=== PATIENT | female | born 1945 | race Caucasian/White ===

== ENCOUNTER → 2016-07-27 | Outpatient (CLI) | payer OTHER ==
[~2016-07-27] MED LIST: ACET-24 PO; ALPR0.5T PO; ASPEC325 PO; DLB500 PO; FRRG PO; LEVO112T4 PO; LEVO125T72 PO; LIDO5DIS10 TD; LISI-461 PO; MORP-157 PO; PANT1TAB48 PO; PARO1TAB27 PO; PARO1TAB29 PO; PRT/20 PO; ROSU20TA22 PO; RXC5 PO; WARF1TAB PO; [UNRECOGNIZED DRUG - REMARK] PO
[2016-07-27 13:10] LABS: HEMATOCRIT 43.7 % (37-47); MEAN CELL VOLUME 88.5 fL (80-100); MEAN CORPUSCULAR HEMOGLOBIN 29.4 pg (25-34); MEAN CORPUSCULAR HGB CONC 33.2 g/dl (32-36); MEAN PLATELET VOLUME 10.5 fL (7.4-10.4); PLATELET COUNT 214 K/uL (130-400); RED BLOOD COUNT 4.94 M/uL (4.2-5.4)
[2016-07-27 14:39] LABS: SYNOVIAL FLUID APPEARANCE CLOUDY; SYNOVIAL FLUID COLOR YELLOW; SYNOVIAL FLUID MONONUC RELAT 38.5 %; SYNOVIAL FLUID POLYNUC RELAT 61.5 %
== END | disposition home or self-care (01) ==
LOC: C.LABBC 09:41
PROVIDERS: ATTEND Orthopaedic Surgery Sports Medicine
DX: M25.569 Pain in unspecified knee (principal); Z96.659 Presence of unspecified artificial knee joint

== ENCOUNTER → 2016-09-22 | Outpatient (CLI) | payer OTHER | END | disposition home or self-care (01) | LOC: C.LAB 13:08 | PROVIDERS: ATTEND Family Medicine | DX: E03.9 Hypothyroidism, unspecified (principal) ==

== ENCOUNTER → 2016-10-16 | Outpatient (CLI) | payer OTHER ==
[~2016-10-16] MED LIST changes: -LEVO125T72 PO; -LIDO5DIS10 TD; -PANT1TAB48 PO; -PARO1TAB27 PO; -WARF1TAB PO; -[UNRECOGNIZED DRUG - REMARK] PO
[2016-10-16 10:29] LABS: HEMATOCRIT 41.9 % (37-47); MEAN CORPUSCULAR HEMOGLOBIN 29.5 pg (25-34); MEAN CORPUSCULAR HGB CONC 33.2 g/dl (32-36); MEAN PLATELET VOLUME 9.7 fL (7.4-10.4); PLATELET COUNT 257 K/uL (130-400); RED BLOOD COUNT 4.71 M/uL (4.2-5.4); WHITE BLOOD COUNT 5.83 K/uL (4.8-10.8)
== END | disposition home or self-care (01) ==
LOC: C.LABBC 08:28
PROVIDERS: ATTEND Orthopaedic Surgery Sports Medicine
DX: M79.604 Pain in right leg (principal)

== ENCOUNTER → 2016-10-22 | Outpatient (CLI) | payer OTHER ==
[2016-10-22 13:38] LABS: HEMATOCRIT 44.1 % (37-47); MEAN CELL VOLUME 89.5 fL (80-100); MEAN CORPUSCULAR HEMOGLOBIN 29.4 pg (25-34); MEAN CORPUSCULAR HGB CONC 32.9 g/dl (32-36); MEAN PLATELET VOLUME 10.1 fL (7.4-10.4); PLATELET COUNT 254 K/uL (130-400); RED BLOOD COUNT 4.93 M/uL (4.2-5.4); WHITE BLOOD COUNT 6.77 K/uL (4.8-10.8)
[2016-10-22 14:01] LABS: SYNOVIAL FLUID APPEARANCE HAZY; SYNOVIAL FLUID COLOR AMBER; SYNOVIAL FLUID MONONUC RELAT 31.5 %; SYNOVIAL FLUID POLYNUC RELAT 68.5 %
== END | disposition home or self-care (01) ==
LOC: C.LABBC 12:05
PROVIDERS: ATTEND Orthopaedic Surgery Sports Medicine
DX: M25.569 Pain in unspecified knee (principal); Z96.659 Presence of unspecified artificial knee joint

== ENCOUNTER → 2016-11-18 | Outpatient (CLI) | payer OTHER ==
[2016-11-18 13:41] LABS: BASO % 0.3 %; BASO ABS # 0.02 K/uL (0-0.2); COMPLETE YES; HEMATOCRIT 40.7 % (37-47); IG% 0.5 %; LYMPH % 37.7 %; LYMPH ABS # 2.17 K/uL (1.2-3.4); MEAN CELL VOLUME 88.7 fL (80-100); MEAN CORPUSCULAR HEMOGLOBIN 29.4 pg (25-34); MEAN CORPUSCULAR HGB CONC 33.2 g/dl (32-36); MEAN PLATELET VOLUME 9.4 fL (7.4-10.4); MONO % 8.7 %; NEUT % 48.8 %; PLATELET COUNT 218 K/uL (130-400); RED BLOOD COUNT 4.59 M/uL (4.2-5.4); WHITE BLOOD COUNT 5.76 K/uL (4.8-10.8)
[2016-11-18 13:51] LABS: PROTHROMBIN TIME (PATIENT) 10.8 SECONDS (9.0-12.0)
[2016-11-18 14:25] LABS: BLOOD UREA NITROGEN 13 mg/dl (7-18); BUN/CREATININE RATIO 10.1 (10-20); C-REACTIVE PROTEIN < 0.29 mg/dl (0-0.29); CALCIUM 9.3 mg/dl (8.5-10.1); CARBON DIOXIDE 27 mmol/L (21-32); CHLORIDE 107 mmol/L (98-107); GLUCOSE 82 mg/dl (70-99); POTASSIUM 3.6 mmol/L (3.5-5.1); SODIUM 141 mmol/L (136-145)
--- NOTE | 2016-12-09 10:36 | History and Physical ---
History & Physical Documentation Date Dec 09, 2016. Chief Complaint Right knee pain HPI (Knee Pain) Pain Location: Anterior knee, Lateral knee, Posterior knee, Medial knee Duration: Months Adversely Affecting: ADL's, Recreation Symptoms Include: + Pain, + Giving way History of Injury/Trauma: Yes (Started with a fall) Non-Surgical Therapies: Behavior modification, Splinting / bracing Mechanical Assistive Devices: Walker Joint Injection: None Prior Orthopedic Procedures: TKA Additional Notes: Extensive work-up reveals aseptic loose TKR with periprosthetic tibia fracture Past Medical/Surgical History HTN Elevated Cholesterol Anxiety Hypothyroidism Low Back Pain GERD Chronic Renal Insufficiency Eye Surgery Right Partial Knee Replacement Right TKR Right Elbow surgery Kidney removal Additional History Hepatic Disease: No Endocrine Disorder: Yes Kidney Disease: Yes Hypertension: Yes Heart Disease: No Bleeding Tendencies: No Infectious Diseases: No Family History No Heart disease, No Pulmonary disease, No Anesthesia difficulties, No Bleeding tendencies Social History Smoking Status: Never Smoker Smokeless Tobacco Use: No Drug Use: none Marital Status: Housing status: lives with family Allergies Coded Allergies: No Known Allergies (Verified , 09/22/16) Home Medications Scheduled Diflunisal (Diflunisal), 500 MG PO BID Levothyroxine Sodium (Levothyroxine Sodium), 1 TAB PO QAM Lisinopril (Zestril), 10 MG PO QAM Pantoprazole (Protonix), 20 MG PO DAILY Paroxetine (Paxil), 40 MG PO QAM Rosuvastatin Calcium (Rosuvastatin Calcium), 1 TAB PO QAM Scheduled PRN Alprazolam (Xanax), 0.5 MG PO BID PRN for Anxiety Review of Systems Constitutional: No fever, No chills, No sweats, No weight loss, No weakness, No fatigue, No problem reported Eyes: No worsening of vision, No eye pain, No redness, No discharge, No diplopia, No problem reported ENT: No hearing loss, No unusual epistaxis, No nasal symptoms, No sore throat, No tinnitus, No dental problems, No trouble swallowing, No problem reported Respiratory: No cough, No sputum, No wheezing, No shortness of breath, No dyspnea on exertion, No dyspnea at rest, No hemoptysis, No problem reported Cardiovascular: No chest pain, No orthopnea, No PND, No edema, No claudication , No palpitations, No problem reported Abdomen: No pain, No nausea, No vomiting, No diarrhea, No constipation, No GI bleeding, No problem reported Musculoskeletal: + joint pain, + muscle pain Genitourinary - Female: No dysuria, No urinary frequency, No urinary urgency, No urinary incontinence, No urinary retention, No hematuria, No dysmenorrhea, No menorrhagia, No metrorrhagia, No rash, No vaginal bleeding, No vaginal discharge, No vaginal itching, No vulvodynia, No , No problem reported Neurologic: No memory loss, No paralysis, No weakness, No numbness/tingling, No vertigo, No balance problems, No problem reported Hematologic / Lymphatic: No abnormal bleeding/bruising, No clotting problems, No swollen lymph nodes, No night sweats, No problem reported Integumentary: No rash, No itch, No new/changing skin lesions, No color change , No bleeding, No problem reported Physical Exam Skin: warm/dry, no rash Eyes: normal inspection ENT: normal ENT inspection Head: normocephalic Neck: supple, no adenopathy Respiratory/Chest: lungs clear, normal breath sounds Cardiovascular: regular rate, rhythm Abdomen / GI: normal bowel sounds Back: normal inspection Neurovascular: Warm, Normal perfusion Neurologic/Psych: no motor/sensory deficits Physical Exam (Knee) Inspection: + Effusion Gait: + Antalgic Range of Motion: pertinent finding (ROM 0 -110) Alignment: + Genu varum Tenderness: Medial joint line, Lateral joint line, Suprapatellar, Infrapatellar (Tender tibia shaft) Radiology Plain Films: pertinent finding (TKR in place with Osteolysis and Funmilayo- prosthetic tibia fractrure - healing) Laboratory ESR = 5 CRP = < 0.29 Aspirate - Negative for infection on Multiple Aspirations Diagnosis & Plan Diagnosis & Plan (1) Periprosthetic Tibia fracture Plan: TKA revision (2) Aseptic Loose TKR Plan: TKA revision Refer to previously dictated HX + PE. Plan to revise to Revision TKR with long stem in tibia. In signs of infection, will place Antibiotic mold.
== END | disposition home or self-care (01) ==
LOC: C.LABBC 12:10
PROVIDERS: ATTEND Orthopaedic Surgery Sports Medicine
DX: Z01.812 Encounter for preprocedural laboratory examination (principal)

== ENCOUNTER 2016-12-11 10:06 | Inpatient (IN) | payer OTHER ==
[2016-09-22 13:13] VITALS: BMI 29.0
[2016-09-22 13:29] VITALS: BMI 29.0
--- NOTE | 2016-09-22 13:56 | PAT Medication Instructions ---
Service Date September 22, 2016. Current Home Medication List Alprazolam (Xanax), 0.5 MG PO BID PRN for Anxiety Diflunisal (Diflunisal), 500 MG PO BID Levothyroxine Sodium (Levothyroxine Sodium), 1 TAB PO QAM Lisinopril (Zestril), 10 MG PO QAM Paroxetine (Paxil), 40 MG PO QAM [Mylon], 40 MG PO QAM Medication Instructions For Your Scheduled Surgery Mylon 40 MG PO QAM (please call Gauri in PAT with name and dose) - Hold the following medications 10 days prior to surgery per surgeon instructins: Diflunisal (Diflunisal), 500 MG PO BID - Hold the following medications the morning of surgery: Lisinopril (Zestril), 10 MG PO QAM - Take the following medications the morning of surgery with a sip of water: Paroxetine (Paxil), 40 MG PO QAM Levothyroxine Sodium (Levothyroxine Sodium), 1 TAB PO QAM Alprazolam (Xanax), 0.5 MG PO BID PRN for Anxiety - Take the following medications as scheduled the night before surgery: Alprazolam (Xanax), 0.5 MG PO BID PRN for Anxiety If you have any questions please call us at [phone] or [phone] ( Gauri) or [phone]
[2016-09-22 14:16] LABS: BASO % 0.3 %; BASO ABS # 0.02 K/uL (0-0.2); COMPLETE YES; EOS % 3.5 %; HEMATOCRIT 42.1 % (37-47); IG% 0.2 %; LYMPH % 30.5 %; LYMPH ABS # 2.02 K/uL (1.2-3.4); MEAN CELL VOLUME 88.1 fL (80-100); MEAN CORPUSCULAR HGB CONC 31.8 g/dl (32-36); MEAN PLATELET VOLUME 9.5 fL (7.4-10.4); MONO % 10.3 %; NEUT % 55.2 %; PLATELET COUNT 230 K/uL (130-400); RED BLOOD COUNT 4.78 M/uL (4.2-5.4); WHITE BLOOD COUNT 6.63 K/uL (4.8-10.8)
[2016-09-22 14:32] LABS: PROTHROMBIN TIME (PATIENT) 10.2 SECONDS (9.0-12.0)
[2016-09-22 15:04] LABS: BUN/CREATININE RATIO 15.5 (10-20); C-REACTIVE PROTEIN 0.35 mg/dl (0-0.29); CALCIUM 8.8 mg/dl (8.5-10.1); POTASSIUM 4.1 mmol/L (3.5-5.1)
--- NOTE | 2016-10-27 00:30 | HISTORY & PHYSICAL EXAMINATION ---
DATE OF ADMISSION: 10/28/2016 CHIEF COMPLAINT: Right knee pain after knee replacement surgery. HISTORY OF PRESENT ILLNESS: The patient is a 71-year-old female, who has got a long history of right knee problems. She developed knee arthritis and had a unispacer placed back in 11/09/2001. She developed some stiffness and had a manipulation about 2 months later. She did okay for a short while, but had persistent pain and had a conversion of this spacer to a partial knee replacement on 10/11/2002. She did pretty well with this for a while and eventually, developed loosening. She underwent a conversion of the unicompartmental knee arthroplasty with a total knee replacement on 03/14/2010. She did quite well with that until just April or so. She had several falls and was nursing a distal humerus fracture. She did develop this pain in her zafar after one of these falls. She was seen in clinic and over time, the x-rays show progressive loosening of the tibial tray. She had infectious workup several times, which have been negative. Her sed rate done on 07/27/2016 was 6 and C-reactive protein less than 0.29. We aspirated her knee, which showed 1500 white cells. Cultures were negative and Synovasure testing was negative. We were actually scheduled to revise her knee and plan on doing a revision and then, she developed zafar pain about a week prior. She was treated for some cellulitis. We waited for this to calm down, but it has only gotten worse. She had another infectious workup with a normal sed rate and C-reactive protein on 10/16/2016 and then again, on 10/22/2016. I did do an MRI of her tib-fib and reviewed this with the radiologist at [facility], convinced that there is some degree of infection. The patient is now indicated for a revision versus placement of an antibiotic spacer. Most likely, we will place a spacer with some antibiotic beads. PAST MEDICAL HISTORY: 1. Hypertension. 2. Elevated cholesterol. 3. Anxiety. 4. Hypothyroidism. 5. Low back pain. 6. Gastroesophageal reflux disease. PAST SURGICAL HISTORY: Include: 1. Eye surgery. 2. A right unispacer done on 11/09/2001 and a right knee manipulation under anesthesia, 01/06/2002. 3. Right partial knee replacement, done 10/11/2002. 4. Right conversion of unicompartment knee to total knee replacement, 2009. 5. ORIF of elbow, surgery done in April 2016. 6. Kidney removal. 7. Left total knee replacement, done 09/08/2013. ALLERGIES: None. CURRENT MEDICINES: Include: 1. Fluoxetine. 2. Diflusinol which is on hold. 3. Lisinopril. 4. Levothyroxine. SOCIAL HISTORY: A 71-year-old female. She is from [place]. FAMILY HISTORY: Noncontributory. REVIEW OF SYSTEMS: Negative for diabetes. Denies any chest pain, no shortness of breath. No history of DVT or PE. PHYSICAL EXAMINATION: GENERAL: She is a pleasant middle-aged female, who looks in pretty good health. HEENT: Benign. NECK: Supple. No lymphadenopathy. LUNGS: Clear to auscultation. HEART: Has a regular rate and rhythm. ABDOMEN: Soft, nontender, nondistended. EXTREMITIES: Grossly neurovascularly intact except as follows: Examination of the right knee reveals the patient walks with the use of crutches. She has got a well-healed incision in the front of her knee. A fairly minimal knee effusion. Range of motion is 0-125. She does have this tenderness in the mid aspect of her zafar area with pretty exquisite soft tissue soreness. There may be a little swelling in this area, as well. No redness or signs of abscess. She is neurologically intact. X-RAYS: X-rays of the knees reveal obvious tibial loosening. This has progressed markedly over the past 6 months. Femoral component still looks to be well fixed. No other bony abnormalities. There is some lucency and lysis around the [id number] cement interface. LABORATORY DATA: She has had multiple sed rates and C-reactive proteins, which have all been normal. Her knee aspirate on 07/27/2016 revealed 1500 white cells with a 60% polys and a negative culture and negative Synovasure. She had another knee aspirate, done 10/22/2016, which revealed 716 white cells, over 70% polys, culture was negative, negative Synovasure test. ASSESSMENT: A 71-year-old white female with a very complex history of multiple right knee surgeries. She is now 7 years out from conversion of a partial to a full knee replacement with a loose tibial tray. It is difficult to determine whether this is an aseptic or a septic loosening. Infectious workup has been negative, except for this mid-zafar pain, which is concerning for a bone infection/osteomyelitis. PLAN: We are going to take her to the operating room and take out her knee replacement. I am, most likely, going to place an antibiotic spacer. We will culture the IM canal and I will likely place antibiotic beads in the canal. We will place an articulated spacer. If I am convinced there is no infection, we may just revise her whole knee. The risks and benefits of this procedure were explained to the patient, including, but not limited to, DVT, PE, , infection, neurological injury, vascular injury, bleeding problems, pain, limited range of motion, stiffness, need for further surgery, etc. The patient understands and desires to proceed. Informed consent was obtained. We did have an extensive discussion about this and I would like to have this all sorted out before proceeding definitively with surgery. She is really just hoping for something to be done as she is in quite a bit of pain. We will proceed along the above course. ANNIE
[~2016-12-11] VITALS: Ht 157.5 cm; Wt 72.2 kg
[2016-12-11] VITALS (10 sets, daily range): BP systolic 94–148; BP diastolic 60–79; PULSE 62–80; TEMP 36.2–36.7; O2SAT 86–98; Ht 157.5 cm; Wt 72.2 kg
[~2016-12-11 10:06] MED LIST changes: -ACET-24 PO; +ACETAMINOPHEN 500 MG TAB PO SCH; -ASPEC325 PO; +BUPIVACAINE 0.25% 30 ML VIAL ONE; +BUPIVACAINE 0.5 % 5 MG/1 ML PF 10ML VIAL ONE; +BUPIVACAINE LIPOSOME 266 MG, BUPIVACAINE/EPINEPHRINE INJ 50 ML, SODIUM CHLORIDE 0.9% PF... INFIL SCH; +BUPIVACAINE/EPINEPHRINE 0.25% 1:200,000 30 ML VIAL ONE; +CEFAZOLIN 2000 MG/60 ML D5W 60 ML IV SCH; +CHECK SCOPOLAMINE PATCH PLACEMENT SCH; +DEXAMETHASONE SOD INJ 4 MG/ML VIAL ONE; +FAMOTIDINE 20 MG TAB PO SCH; -FRRG PO; +GABAPENTIN 300 MG CAP PO SCH; +LACTATED RINGER'S 1000ML 1,000 ML IV SCH; +LACTATED RINGER'S 1000ML IV SCH; +LACTATED RINGER'S 500 ML IV SCH; +METOCLOPRAMIDE HCL 10 MG TAB PO SCH; -MORP-157 PO; +ROPIVACAINE 5MG/ML 30 ML 100 MG, METHYLPREDNISOLONE IV 40 MG, MoRPHine SULFATE 4 MG, Ep... INFIL SCH; -RXC5 PO; +SCOPOLAMINE 1.5 MG TDSY TD SCH; +TRANEXAMIC ACID INJ 1,000 MG in SODIUM CHLORIDE 0.9% 100ML 100 ML IV SCH
--- NOTE | 2016-12-11 10:57 | History & Physical Bridge Note ---
H&P Re-Evaluation Bridge Note: I have examined the patient, reviewed the History & Physical and in the interval since the performance of the History & Physical I have noted the following changes of clinical significance: No changes noted
[2016-12-11] MEDS ORDERED: MIDAZOLAM HCL 1 MG/ML 2ML VIAL ONE ×2 (11:49→15:40)
[2016-12-11] MEDS ORDERED: PHENYLEPHRINE 100MCG/ML 5ML SYR IV PRN (13:00)
[2016-12-11] MEDS ORDERED: ATROPINE SULFATE 0.1 MG/ML 5ML SYR IV PRN (13:00)
[2016-12-11] MEDS ORDERED: HYDROmorphone INJ 2 MG/ML SYR/VIAL IV PRN (13:00)
[2016-12-11] MEDS ORDERED: EpHEDrine SULFATE INJ 50 MG/ML AMP IV PRN (13:00)
[2016-12-11] MEDS ORDERED: ONDANSETRON INJ 2 MG/ML 2 ML VIAL IV PRN (13:00)
[2016-12-11] MEDS ORDERED: BUPIVACAINE LIPOSOME 1/3% 266 MG/20 ML VIAL INFIL ONE ×2 (13:21→17:45)
[2016-12-11] MEDS ORDERED: BACITRACIN 50000 UNIT VIAL ONE ×2 (13:21→17:02)
[2016-12-11] MEDS ORDERED: SODIUM CHLORIDE 0.9% PF 50 ML VIAL ONE (13:21)
[2016-12-11] MEDS ORDERED: VANCOMYCIN HCL 1000MG/20ML VIAL ONE (13:22)
[2016-12-11] MEDS ORDERED: TOBRAMYCIN SULF 40 MG/ML 2 ML VIAL ONE (13:23)
[2016-12-11] MEDS ORDERED: BUPIVACAINE/EPINEPHRINE 0.25% 10 ML VIAL ONE (13:28)
[2016-12-11] MEDS ORDERED: PROPOFOL IV EMULSION 10 MG/ML 20 ML VIAL IV ONE ×2 (14:10→16:17)
[2016-12-11] MEDS ORDERED: CEFAZOLIN SOD 1 GM VIAL ONE ×2 (14:10→17:58)
[2016-12-11] MEDS ORDERED: LIDOCAINE HCL 2% 2 ML VIAL (20MG/ML) ONE (14:10)
[2016-12-11] MEDS: CHECK SCOPOLAMINE PATCH PLACEMENT SCH ×2 (16:00→23:53)
[2016-12-11] MEDS ORDERED: KETAMINE HCL INJ 50 MG/ML 10 ML VIAL ONE (17:15)
[2016-12-11] MEDS ORDERED: BUPIVACAINE/EPINEPHRINE 0.25% 1:200,000 30 ML VIAL INJ ONE (17:45)
[2016-12-11] MEDS ORDERED: BACITRACIN 50000 UNIT VIAL IR ONE (17:45)
[2016-12-11] MEDS ORDERED: BISACODYL 10 MG SUPP PR PRN (18:00)
[2016-12-11] MEDS ORDERED: ALUMINUM/MAGNESIUM/SIMETH (MAALOX MAX) 30 ML UDC PO PRN (18:00)
[2016-12-11] MEDS ORDERED: NO NSAIDS SCH (18:00)
[2016-12-11] MEDS ORDERED: SILVER SULFADIAZINE 1% CR 50 GM JAR EXT PRN (18:00)
[2016-12-11] MEDS ORDERED: ZOLPIDEM TARTRATE 5 MG TAB PO PRN (18:00)
[2016-12-11] MEDS ORDERED: MAGNESIUM HYDROXIDE SUSP 30 ML UDC PO PRN (18:00)
[2016-12-11] MEDS ORDERED: METOCLOPRAMIDE HCL INJ 5 MG/ML 2 ML VIAL IV PRN (18:00)
[2016-12-11] MEDS ORDERED: ALPRAZOLAM 0.5 MG TAB PO PRN (18:00)
--- NOTE | 2016-12-11 18:00 | DIAGNOSTIC IMAGING REPORT ---
INTRAOPERATIVE RIGHT LOWER LEG 3 VIEWS CLINICAL HISTORY: Right knee arthroplasty revision COMPARISON STUDY: Outside conventional radiographic study dated 10/30/2016 FINDINGS:3 fluoroscopic spot images are provided for interpretation. 20 seconds of fluoroscopic time was utilized. The images demonstrate the distal aspect of a right tibial intramedullary moises/long prosthetic spike. There is a proximal cerclage wire. There is minimal nonspecific irregularity of the medial cortex of the tibia midway between the cerclage wire and the distal spike. There is equivocal minimal bowing deformity of the tibia. Correlation with conventional radiographs would be of benefit. IMPRESSION: Intraoperative radiographs as described above. Correlation with conventional radiographs would be of benefit. Electronically signed by: Theron Joya M.D. 12/11/2016 5:59 PM Dictated Date/Time: 12/11/2016 5:56 PM
--- NOTE | 2016-12-11 18:00 | [facility] Post Operative Brief Note ---
Immediate Operative Summary Operative Date Dec 11, 2016. Pre-Operative Diagnosis Aseptic Loosening of Right TKR with Periprosthetic Tibia Fracture Post-Operative Diagnosis same as preop Procedure(s) Performed Revision Right TKR Surgeon Dr. Nithin Ayon [employer] Att[employer] Surgeon(s) Pablito Serrano PA-C Estimated Blood Loss 200 cc Findings Loose TKR with healing tibia fracture Fluids (cc crystalloids) 2000 cc Specimens Microbiology 1. Right Knee synovial fluid for gram stain, aerobic and anaerobic bacteria. 2. Synovium sent for Frozen Section 2. Right knee synovium for number of polys per high power field. Out at 1427 Anesthesia Spinal Complication(s) None Disposition Recovery Room / PACU
--- NOTE | 2016-12-11 18:22 | Anesthesiology Progress Note ---
Anesthesia Post Op Note Date & Time Dec 11, 2016 at 18:22 Vital Signs Pain Intensity: 0 Vital Signs Past 12 Hours Date Time Temp Pulse Resp B/P (MAP) Pulse Ox O2 Delivery O2 Flow Rate FiO2 12/11/16 18:15 75 16 124/71 100 Oxymask 5 12/11/16 18:09 36.0 82 16 139/74 100 Oxymask 10 12/11/16 10:40 36.4 65 20 137/69 98 Room Air Notes Mental Status: alert / awake / arousable, participated in evaluation Pt Amnestic to Procedure: Yes Nausea / Vomiting: adequately controlled Pain: adequately controlled Airway Patency, RR, SpO2: stable & adequate BP & HR: stable & adequate Hydration State: stable & adequate Neuraxial Anesthesia: was administered, sensory block is resolving Anesthetic Complications: no major complications apparent
--- NOTE | 2016-12-11 18:43 | DIAGNOSTIC IMAGING REPORT ---
RIGHT KNEE 1 OR 2 VIEWS ROUTINE CLINICAL HISTORY: Postoperative evaluation. COMPARISON: Right knee radiographs October 30, [address] of the right tibia and fibula October 28, 2016. FINDINGS: Alignment of the long stem revision right knee arthroplasty is anatomic. There are skin samuel. There are no unexpected radiopaque foreign bodies. 2 cerclage wires of the tibial component are noted. Subtle cortical irregularity of the medial cortex of the midshaft of the right tibia reflects cortical thickening/periosteal reaction from a fracture which was shown on exam of October 28, 2016. There is no acute fracture on this exam. IMPRESSION: Expected findings following revision right knee arthroplasty. Electronically signed by: Fish Zeng M.D. 12/11/2016 6:42 PM Dictated Date/Time: 12/11/2016 6:38 PM
[2016-12-11] MEDS ORDERED: VANCOMYCIN HCL 1000MG/20ML VIAL TOP ONE (19:26)
[2016-12-11] MEDS: HYDROmorphone INJ 0.5 MG/0.5 ML SYR IV PRN ×2 (19:38→22:25)
[2016-12-11] MEDS: D5W AND 1/2NSS + 20MEQ KCL 1,000 ML IV SCH (20:20)
[2016-12-11] MEDS: OXYCODONE HCL IR 5 MG TAB (IMMEDIATE RELEASE) PO PRN (20:28)
[2016-12-11] MEDS: DOCUSATE SODIUM 100 MG CAP PO SCH (20:29)
[2016-12-11] MEDS: SENNA 8.6 MG TAB PO SCH (20:30)
[2016-12-11] MEDS: ASPIRIN 325 MG ECTAB PO SCH (20:30)
[2016-12-11] MEDS ORDERED: TRANEXAMIC ACID INJ 1,000 MG in SODIUM CHLORIDE 0.9% 100ML 100 ML IV SCH (21:00)
[2016-12-11] MEDS ORDERED: DIFLUNISAL 500 MG TAB PO SCH (21:00)
[2016-12-11] MEDS: TAPENTADOL ER 50 MG TABCR PO SCH (21:40)
[2016-12-11] MEDS: ACETAMINOPHEN 500 MG TAB PO SCH (21:41)
[2016-12-11] MEDS: CEFAZOLIN IV 1,000 MG in DEXTROSE 5% 50ML 50 ML IV SCH (21:41)
[2016-12-11] MEDS: ONDANSETRON INJ 2 MG/ML 2 ML VIAL IV PRN (22:25)
[2016-12-12] VITALS (8 sets, daily range): BP systolic 93–148; BP diastolic 57–76; PULSE 66–83; TEMP 36.8–37.2; O2SAT 88–96
[2016-12-12] MEDS: LEVOTHYROXINE 112 MCG TAB PO SCH (06:07)
[2016-12-12] MEDS: D5W AND 1/2NSS + 20MEQ KCL 1,000 ML IV SCH (06:07)
[2016-12-12] MEDS: CEFAZOLIN IV 1,000 MG in DEXTROSE 5% 50ML 50 ML IV SCH (06:07)
[2016-12-12] MEDS: ACETAMINOPHEN 500 MG TAB PO SCH ×3 (06:08→21:19)
[2016-12-12] MEDS: OXYCODONE HCL IR 5 MG TAB (IMMEDIATE RELEASE) PO PRN ×4 (06:08→21:20)
[2016-12-12 06:26] LABS: HEMATOCRIT 32.2 % (37-47); MEAN CELL VOLUME 91.2 fL (80-100); MEAN CORPUSCULAR HEMOGLOBIN 30.3 pg (25-34); MEAN CORPUSCULAR HGB CONC 33.2 g/dl (32-36); MEAN PLATELET VOLUME 9.6 fL (7.4-10.4); PLATELET COUNT 211 K/uL (130-400); RED BLOOD COUNT 3.53 M/uL (4.2-5.4); WHITE BLOOD COUNT 8.24 K/uL (4.8-10.8)
[2016-12-12 06:58] LABS: BUN/CREATININE RATIO 10.3 (10-20); CALCIUM 7.9 mg/dl (8.5-10.1); CREATININE 1.2 mg/dl (0.60-1.20); POTASSIUM 5.2 mmol/L (3.5-5.1)
[2016-12-12] MEDS: TAPENTADOL ER 50 MG TABCR PO SCH ×2 (07:42→21:19)
[2016-12-12] MEDS: CHECK SCOPOLAMINE PATCH PLACEMENT SCH (07:43)
[2016-12-12] MEDS: HYDROmorphone INJ 0.5 MG/0.5 ML SYR IV PRN ×3 (07:43→19:57)
[2016-12-12] MEDS ORDERED: ASPEC325 PO (08:50)
[2016-12-12] MEDS ORDERED: FRRG PO (08:50)
[2016-12-12] MEDS ORDERED: MORP-157 PO (08:50)
[2016-12-12] MEDS ORDERED: RXC5 PO (08:50)
[2016-12-12] MEDS ORDERED: ACET-24 PO (08:50)
[2016-12-12] MEDS ORDERED: NON-FORMULARY MEDICATION (Pantoprazole (Protonix) 20 MG) PO SCH (09:00)
[2016-12-12] MEDS: PANTOprazole SOD 40 MG TAB PO SCH (09:16)
[2016-12-12] MEDS: ASPIRIN 325 MG ECTAB PO SCH ×2 (09:16→21:19)
[2016-12-12] MEDS: LISINOPRIL 10 MG TAB PO SCH (09:16)
[2016-12-12] MEDS: MULTIVITAMIN TAB PO SCH (09:16)
[2016-12-12] MEDS: ROSUVASTATIN CALCIUM 20 MG TAB PO SCH (09:17)
[2016-12-12] MEDS: DOCUSATE SODIUM 100 MG CAP PO SCH ×2 (09:17→21:19)
[2016-12-12] MEDS: PAROXETINE 20 MG TAB PO SCH (09:17)
--- NOTE | 2016-12-12 09:17 | Discharge Instructions ---
Discharge Instructions Date of Service Dec 12, 2016. Admission Reason for Admission: Right Knee Pain, Hx Of Total Knee Arthroplasty Discharge Discharge Diagnosis / Problem: Right Knee Replacement Revision Discharge Goals Goal(s): Decrease discomfort, Improve function, Improve disease control, Therapeutic intervention Activity Recommendations Activity Limitations: per Instructions/Follow-up section Weightbearing Status: Right weightbearing . Instructions / Follow-Up Instructions / Follow-Up ACTIVITY RECOMMENDATIONS: Physical Therapy: * You will go to physical therapy three times each week for four to six weeks after your surgery in order to regain your knee range of motion and to retrain your knee to work properly. * It is just as important to make sure you are getting your knee perfectly straight as it is to regain your knee bend. * Taking a pain pill an hour before therapy can help you have a more productive and comfortable therapy session. Home Exercise: * You were shown a series of exercises (heel props, heel slides, etc.) in the hospital. Do these exercises three to four times each day including the exercises you were shown in physical therapy. Walking: * Get up and walk several times each day. For the first four weeks, try not to stand or walk for more than one hour at a time. If you do stand or walk for more than one hour, you will not hurt anything, but your knee and leg will likely swell. * As you feel comfortable, you may change from the walker or crutches to a cane and then to independent walking. MEDICATIONS: New Medicine: * You will likely be taking one or more of these medications: 1. MS Contin - A long-acting pain medication. Take 1 tablet twice a day for the first ten days to decrease your baseline level of pain. 2. Oxycodone - A quick and shorter-acting pain medication. Take one to two tablets every four to six hours to lessen your pain. 3. Iron Sulfate - Take two times each day for the month after surgery to help you replace the blood lost during surgery. 4. Aspirin - Thins your blood to lessen the chance of forming a blood clot. * The most common side effects of pain medicine and iron are nausea and constipation. If nausea or constipation is too much of a problem or if you have any questions about your new medicines or doses, call [facility] at . We will try to help you manage these issues. VERY IMPORTANT TO READ AND REVIEW" Pain: * The immediate post-operative period after knee replacement surgery is often quite painful. * You are given a prescription for pain medicine. You should take it, as directed, when you need it, especially before physical therapy and before going to bed. Pain that interferes with sleep is very common and can last several months. * You will likely need pain medicine for the first four to six weeks. It will not stop all of the pain. The pain will lessen and as you feel better, you may change to milder pain medicine such as Tylenol. * The most common side effects of pain medicine are nausea and constipation, so don't take more than you need. SPECIAL CARE INSTRUCTIONS: TEDs/Elastic Stockings: * The white elastic stockings help limit swelling and prevent blood clots from forming in your legs. The more you wear them, the more they work. * Wear them for six weeks after knee replacement surgery and four weeks after partial knee replacement. Prevention of Infection: * Take antibiotics one hour before any dental cleaning, dental work, urological procedure, gastrointestinal procedure or any invasive surgery in order to prevent your new joint from getting infected. * You may get the antibiotics from the doctor performing the procedure or you may call our office at before and we will call in a prescription to the pharmacy of your choice. Things to Watch For: * Drainage from the incision site that occurs more than one week after your surgery. * Severely increased knee/leg pain or swelling. * Increased redness at the incision site. * Fever above 102 degrees Fahrenheit. * Unusual chest pain or shortness of breath. * Unusual pain or burning with urination. Call [facility] at with any of the above problems or if you have any questions about your medicines or recovery. FOLLOW UP VISIT: Make an appointment to see your doctor for approximately two weeks after surgery for a progress check and staple removal by calling the office at . Current Hospital Diet Patient's current hospital diet: Regular Diet Discharge Diet Recommended Diet: Regular Diet Procedures Procedures Performed: Right Total Knee Revision Pending Studies Studies pending at discharge: no Medical Emergencies . Who to Call and When: Medical Emergencies: If at any time you feel your situation is an emergency, please call [phone] immediately. . Non-Emergent Contact Non-Emergency issues call your: Surgeon . "Provider Documentation" section prepared by Nithin Ayon. . VTE Core Measure Inpt VTE Proph given/why not?: Other Anticoagulation, T.E.D. Stockings, SCD's
[2016-12-12] MEDS: FERROUS GLUCONATE 324 MG TAB PO SCH ×3 (09:18→17:45)
--- NOTE | 2016-12-12 09:44 | PROGRESS NOTE ---
DATE: 12/12/2016 DATE: 12/12/2016. SUBJECTIVE: A 71-year-old white female postop day 1 from an extensive revision total knee replacement. Also, ORIF of periprosthetic tibia fracture. She is doing pretty well. Her major complaint is back pain. The knee pain is controlled. No fevers. Denies any chest pain or shortness of breath. OBJECTIVE: VITAL SIGNS: Temperature 37.2. Vital signs stable. PHYSICAL EXAMINATION: GENERAL: Reveals a pleasant elderly female. She is sitting up in bed eating breakfast. Looks pretty comfortable. LUNGS: Clear to auscultation. HEART: Regular rate and rhythm. ABDOMEN: Soft, nontender, nondistended. EXTREMITY EXAMINATION: Grossly neurovascularly intact except as follows: Examination of the right leg reveals the leg to be well aligned. Patient dorsiflex and plantarflex her foot appropriately. She is neurologically intact. Brisk refill. LABORATORY DATA: Hemoglobin 10.7. Hematocrit 32.2. Electrolytes are pretty stable. Potassium slightly elevated at 5.2. CULTURE RESULTS: Culture results are pending. Gram stain showing few WBCs, no organisms. ASSESSMENT: A 71-year-old white female status post a pretty extensive right total knee replacement revision with ORIF of periprosthetic tibia fracture, doing pretty well. Pain seems to be controlled. She is neurologically intact. PLAN: 1. DVT prophylaxis including thigh-high TEDs, SCDs, and aspirin twice a day. 2. PT/OT. Weight bear as tolerated. Right total knee protocol. 3. Pain control. Doing pretty well with current pain regimen. 4. Elevated potassium. We were going to discontinue her IV fluids. We will recheck that tomorrow. 5. Disposition. She was hoping to be discharged to home with some home health once adequately recovered.
--- NOTE | 2016-12-12 10:05 | OPERATIVE REPORT ---
DATE OF OPERATION: 12/11/2016 SURGEON: Nithin Ayon MD MICRO COMPUTER DATA PROCESSOR: KATIE Poole PREOPERATIVE DIAGNOSES: 1. 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 2. Right periprosthetic tibia fracture. POSTOPERATIVE DIAGNOSES: Same. PROCEDURES PERFORMED: 1. Right total knee revision. 2. ORIF of right periprosthetic tibia fracture. COMPLICATIONS: None. ESTIMATED BLOOD LOSS: 200 mL. FLUID REPLACEMENT: 2000 mL crystalloid fluid replacement. TOURNIQUET TIME: Two separate tourniquet times. First tourniquet time was 120 minutes at 300 mmHg. The tourniquet was then let down for 52 minutes and then placed back up for an additional 27 minutes at 300 mmHg. OPERATIVE INDICATIONS: The patient is a 71-year-old female who has a long history of knee problems. She had an unispacer placed many years ago followed by a partial knee replacement and then subsequent conversion of a partial to a full knee replacement 7 years ago. She did well until about 6 months ago when she had several falls. She started developing pain and discomfort in her right knee. X-rays overtime showed progressive loosening of the tibial tray. She was actually scheduled to have this revised and then started developing increased pain, discomfort, and swelling consistent with possible infection. We did an extensive workup and overtime, x-rays as well as exam were consistent with a periprosthetic tibia fracture to the mid shaft area. We elected to leave this heal partially before proceeding with revision surgery, so the fracture was in the healing process and not real sloppy or fragile. Of note, the patient had an extensive infectious workup including labs, which were all normal as well as the knee aspirates, which had showed no growth. She did have some CPPD crystals on one of the aspirate. She also had Synovasure testing, which was negative. I did not feel there were any signs of infection and the patient was indicated for revision surgery and fixation of the tibia. OPERATIVE IMPLANTS: Operative implants consisted of: 1. A Biomet Vanguard size 60 right posterior stabilized femoral component with a 2.5-mm offset, a 13 x 120-mm stem with a 10-mm distal lateral augment and a 5-mm distal medial augment. 2. Biomet size 63 tibial tray with a 2.5-mm offset, 5-mm medial and lateral augments and a 12 x 160-mm stem with a small cruciate wing. 3. A 12-mm posterior stabilized polyethylene insert. OPERATIVE SPECIMENS: Joint fluid was sent for analysis, which revealed rare WBCs and no organisms. Frozen section revealed less than 5 polys per high powered field. OPERATIVE FINDINGS: Operative findings revealed extensive synovitis and particulate debris. 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 She had gross loosening of the tibial tray. The femoral component was not loose. Patella was well fixed. There was a benign appearing effusion. She did have extensive osteolysis of the tibia and was missing a portion of her lateral tibial plateau in the middle aspect. She did have anterior and posterior component, on which we did place the implant. OPERATIVE PROCEDURE: The patient was taken to the operating room, identified and placed on the operating table in the supine position. All contact areas were appropriately padded. A Villarreal catheter was placed in sterile fashion. A spinal anesthetic had been implemented in the holding area. A right thigh tourniquet was then placed. The right lower extremity was then prepped and draped in the usual sterile fashion. The patient did receive preoperative antibiotics as it was convinced that she did not have infection. The right leg was elevated and exsanguinated with Esmarch and tourniquet was placed at 300 mmHg. An anterior approach to the right knee was then performed through the previously curvilinear incision extending both proximally and distally. Sharp dissection was carried out through the subcutaneous tissues down to the level of the extensor mechanism. A medial parapatellar arthrotomy incision was made. I then spent quite a bit of time to complete the extensive synovectomy. She had extensive reactive synovitis. The joint fluid was sent off for analysis, which revealed rare WBCs and no organisms. The synovial tissue was sent off for analysis as well, which revealed less than 5 polys per high power field and in most areas not even a single polyp per high powered field. We elected to proceed with revision. I first proceeded with fixation of the tibia fracture. I extended my incision distally. I made a small incision in 2 areas over the anterolateral musculature right next the tibia and then passed two 2.0 Dall-Miles cables and tightened them to fix the tibia fracture and avoid splitting as I knew reaming was necessary. Once this was fixed, we went back to the knee joint. The thigh was subluxated laterally. I did examine the patella component looked to be well fixed without significant polyethylene wear, so we elected to leave this. The tibial polyethylene was removed. The tibia was subluxated anteriorly. I removed the tibial tray without difficulty. I used an osteotome to remove the cement. I then went to preparing the tibia. The tibia was then reamed beginning with an entry drill followed by the 10 reamer. We had to ream it at least to a 12 and we got 12 implant in, which was the smallest implant. We did ream up to 12. I assessed this and I wanted to bypass the previous tibia fracture by a 4 cm and we were able to do this with a 160-mm offset stem. We elected to use this. I then reamed up to a 13 to make sure it was not excessively tight. I then prepared the tibia for a 2.5-mm offset tibial tray with 160 mm stem extension and a small cruciate wing. We used one 63 tibial tray, which seemed to fit her tibia quite nicely. Attention was then drawn to the femur. With use of the small oscillating saw, I freed up the femoral component from the underlying femur. Using the stacked osteotome technique, we were able to remove the femoral component. There was extensive osteolysis. The distal femur was entered with the entry drill. I sized this to a size 60. The distal femoral cutting block was pinned in place and distal femoral cut was made. I just freshened up the medial side and cut for a 5-mm augment on the lateral side as I felt it was more deficient laterally. We then placed the AP cutting block parallel to epicondylar axis. The anterior cut, anterior chamfer, posterior cut, and posterior chamfer cuts were made. There was really not much cutting involved as her femur was small. We then placed the box cutting device and made the box cut. I did cut for a 5-mm augment initially from the posteromedial side, but then elected not to use it in order to rotate the femur properly. The whole trial components were then assembled. We then trialed the knee and the 12-mm insert fit most appropriately. At this point, the tourniquet was up 120 minutes and we let it down. I irrigated the wound extensively. I spent additional time to get rid of the posterior scar tissue in the posterior aspect of the knee. We injected locally with 100 mL of a combination of 20 mL of Exparel, 30 mL of normal saline, and 50 mL of 0.25% Marcaine with epinephrine. We packed the wound. I then assembled the components on the back table. Once this was complete, I irrigated the wound again. The Esmarch was used to exsanguinate the knee. A double batch of Palacos G cement was mixed with a single gram of vancomycin. The femoral component was then placed followed by the tibial component. We brought the knee out into full extension until cement hardened. We used the trial implant initially. Once the cement hardened, I did trial the knee and I elected to use a 12-mm insert. The 12-mm insert was placed. Knee was taken through range of motion and the patella tracked nicely. Attention was then drawn toward closing. The wound was once again irrigated extensively. The tourniquet was then let down for a second tourniquet time of 27 minutes. Hemostasis was assured with use of electrocautery. The extensor mechanism was then closed with a combination of #1 PDS suture and #1 Vicryl suture in a [id number] fashion. Extensor mechanism was checked and found to be intact. Subcutaneous tissues were then closed with 2-0 Dexon suture in a buried interrupted fashion. Skin was closed skin samuel. Leg was then cleaned and dried and a sterile dressing of Xeroform, 4 x 4's, sterile cast padding and [place] bandage were applied. The patient then transferred to the recovery room in stable condition. The patient tolerated the procedure well with no complications. All needle and sponge counts were correct at the end of the operation. I attest to the content of the Intraoperative Record and any orders documented therein. Any exceptions are noted below. GIAND
[2016-12-12] MEDS: ONDANSETRON INJ 2 MG/ML 2 ML VIAL IV PRN (10:21)
[2016-12-12] MEDS ORDERED: NURSING VERBAL MED ORDER ONE (13:00)
[2016-12-12] MEDS: SENNA 8.6 MG TAB PO SCH (21:18)
[2016-12-13] MEDS: ACETAMINOPHEN 500 MG TAB PO SCH (05:47)
[2016-12-13] MEDS: LEVOTHYROXINE 112 MCG TAB PO SCH (05:47)
[2016-12-13] MEDS: OXYCODONE HCL IR 5 MG TAB (IMMEDIATE RELEASE) PO PRN ×2 (05:48→10:23)
[2016-12-13 07:39] VITALS: BP 85/53; PULSE 67; TEMP 36.6; O2SAT 94
[2016-12-13 08:29] VITALS: BP 101/67; PULSE 71
[2016-12-13] MEDS: FERROUS GLUCONATE 324 MG TAB PO SCH (08:30)
[2016-12-13] MEDS: LISINOPRIL 10 MG TAB PO SCH (08:30)
[2016-12-13] MEDS: DOCUSATE SODIUM 100 MG CAP PO SCH (08:30)
[2016-12-13] MEDS: PANTOprazole SOD 40 MG TAB PO SCH (08:30)
[2016-12-13] MEDS: MULTIVITAMIN TAB PO SCH (08:30)
[2016-12-13] MEDS: ROSUVASTATIN CALCIUM 20 MG TAB PO SCH (08:30)
[2016-12-13] MEDS: ASPIRIN 325 MG ECTAB PO SCH (08:30)
[2016-12-13] MEDS: PAROXETINE 20 MG TAB PO SCH (08:31)
[2016-12-13] MEDS: TAPENTADOL ER 50 MG TABCR PO SCH (08:32)
[2016-12-13 10:02] VITALS: BP 101/67; PULSE 71; O2SAT 94
[2016-12-13 10:28] VITALS: BP 101/67; PULSE 71; TEMP 36.6; O2SAT 94
--- NOTE | 2016-12-13 11:17 | PROGRESS NOTE ---
DATE: 12/13/2016 DATE: 12/13/2016. SUBJECTIVE: A 71-year-old white female postop day 2 from right knee total knee revision with periprosthetic tibia fracture preop. She is doing well. Pain is reasonably well controlled. No chest pain or shortness of breath. Not feeling dizzy or lightheaded. OBJECTIVE: VITAL SIGNS: Temperature 36.6. Vital signs stable. PHYSICAL EXAMINATION: GENERAL: Reveals a pleasant elderly female. She is sitting up in bed, looks pretty comfortable. LUNGS: Clear to auscultation. HEART: Regular rate and rhythm. ABDOMEN: Soft, nontender, nondistended. EXTREMITY EXAMINATION: Grossly neurovascularly intact except as follows: Examination of the right leg reveals the leg to be well aligned. Dressings reveal some bloody drainage on the anterior aspect of right dressing. Incision is well approximated. She can dorsiflex and plantarflex her foot appropriately. She is neurologically intact. LABORATORY DATA: Potassium at 4.1 normal. CULTURE: Culture results no growth. ASSESSMENT: A 71-year-old white female postop day 2 from revision total knee arthroplasty, doing reasonably well. Pain is controlled. PLAN: 1. DVT prophylaxis including thigh-high TEDs, SCDs, and aspirin twice daily. 2. PT/OT. Weightbearing as tolerated. Right total knee protocol. 3. Pain control. Doing reasonably well with current pain regimen. 4. Hyperkalemia. Potassiums are normalized. 5. Disposition. Plan to discharge to home with some home health once adequately recovered.
--- NOTE | 2016-12-26 12:38 | DISCHARGE SUMMARY ---
ADMISSION DIAGNOSIS: Aseptically loose total knee replacement with a periprosthetic tibia fracture. DISCHARGE DIAGNOSES: Status post revision right total knee replacement and open reduction and internal fixation of the periprosthetic tibia fracture. PROCEDURE PERFORMED: Right revision total knee replacement with ORIF of a periprosthetic tibia fracture. HISTORY OF PRESENT ILLNESS: The patient is a 71-year-old female who has a history of multiple interventions and arthroplasties of the right knee. Seven years ago, she went conversion of a partial to full knee replacement. She did well until about 6 months ago when she had multiple falls and then developed increased pain and discomfort and x-rays showed progressive loosening of her tibial tray. She was scheduled for revision surgery when she developed increased pain and discomfort and a periprosthetic tibia fracture. She had extensive workup and there was some concern for infection. Over time, it became evident that she had a fracture distal in the mid shaft and proximal tibia. We allowed this to heal to some degree before proceeding with intervention. The patient was indicated for revision surgery. PAST MEDICAL HISTORY AND PHYSICAL EXAMINATION: As per the admission H&P. HOSPITAL COURSE: The patient was admitted to the hospital on 12/11/2016. She underwent a fairly complex revision total knee arthroplasty with ORIF of the periprosthetic tibia fracture. She responded well with surgery and progressed nicely in therapy. She started on DVT prophylaxis including thigh-high TEDs, SCDs, and aspirin postoperatively. She progressed through therapy. On first postoperative day, her potassium slightly elevated, so we removed the potassium from her IV fluids and the potassium in the following day was normal. Her hemoglobin was stable throughout. She was discharged home on 12/13/2016 with home health. There were no complications during her hospital stay. DISPOSITION: The patient was discharged to home with the plan for followup in 10-12 days after discharge in my office. ANNIE
== END 2016-12-13 10:57 | disposition home health service (06) | DRG 468 ==
LOC: C.ACU 10:06 → C.3E 10:57 → ENRESERV 18:46
PROVIDERS: ADMIT Orthopaedic Surgery Sports Medicine; ATTEND Orthopaedic Surgery Sports Medicine
PROC: 0SRC0J9 Replacement of Right Knee Joint with Synthetic Substitute, Cemented, Open Approach (ICD-10-PCS; principal; 2016-12-11 12:30)
PROC: 0QSG04Z Reposition Right Tibia with Internal Fixation Device, Open Approach (ICD-10-PCS; principal; 2016-12-11 12:30)
PROC: 0SPC0JZ Removal of Synthetic Substitute from Right Knee Joint, Open Approach (ICD-10-PCS; principal; 2016-12-11 12:30)
DX: T84.032A Mechanical loosening of internal right knee prosthetic joint, initial encounter (principal); M97.11XA Periprosthetic fracture around internal prosthetic right knee joint, initial encounter; Y83.1 Surgical operation with implant of artificial internal device as the cause of abnormal reaction of the patient, or of later complication, without mention of misadventure at the time of the procedure; I10 Essential (primary) hypertension; E78.00 Pure hypercholesterolemia, unspecified; F41.9 Anxiety disorder, unspecified; E03.9 Hypothyroidism, unspecified; K21.9 Gastro-esophageal reflux disease without esophagitis; Z96.652 Presence of left artificial knee joint; Z96.651 Presence of right artificial knee joint